=== PATIENT | male | born 1960 | race Caucasian/White ===

== ENCOUNTER 2021-06-26 18:56 | Inpatient (IN) | payer MEDICAID, SELFPAY ==
[~2021-06-26] VITALS: Ht 182.9 cm; Wt 69.4 kg
[2021-06-26 18:56] VITALS: BP_SYST 147
--- NOTE | 2021-06-26 18:56 | NUR ---
Placed in room 7 . Placed on mosaic floor layer, blood pressure machine and pulse oximeter. To gown for exam. Side rails up.
--- NOTE | 2021-06-26 18:57 | NUR ---
Pt bib ALS from [facility] for respiratory distress thats been getting progessivley worse for 4 days. Pt presenting diaphoretic and warm to touch. Pt GCS 9 at baseline. Pt is tachycardic 112 and tachypnic 37 vent dependent on a trach saturating at 100% and hypertensive 148/84. Pt presents with G-tube. Pt breathing is even and labored. Pt in [facility] attached to monitor. Rectal temp 101. Pt brought with a 20 gauge IV to right forearm.
--- NOTE | 2021-06-26 18:58 | NUR ---
1 Gram Rectal tylenol administered to pt per MD order.
--- NOTE | 2021-06-26 18:59 | NUR ---
Vent setting AC 22 FIO2 40% PEEP 6
--- NOTE | 2021-06-26 18:59 | NUR ---
Man catheter inserted with sterile technique per MD order. Pt tolerated well.
--- NOTE | 2021-06-26 19:00 | NUR ---
Urine collected and sent to lab.
[2021-06-26] MEDS ORDERED: ACETAMINOPHEN 650 MG SUPP.RECT RC ONE (19:15)
--- NOTE | 2021-06-26 19:25 | NUR ---
# 20 gauge angiocath placed to right hand. Use of asceptic technique. Opsite placed over site. Blood return noted. Blood for lab drawn from site. Flushed with 10 cc of normal saline. No evidence of infiltration noted. Patient tolerated well.
[2021-06-26] MEDS ORDERED: VANCOMYCIN HCL 1,000 MG in NS 250 ML IV ONE (19:30)
[2021-06-26] MEDS ORDERED: CEFEPIME 1 GM in D5W 50 ML IV ONE (19:30)
--- NOTE | 2021-06-26 19:30 | NUR ---
Annika meza in EDM - 06/26/21 at 1939 by [email or web address] PORTABLE XRAY DONE AT BEDSIDE.
--- NOTE | 2021-06-26 19:34 | NUR ---
X-ray at bedside.
--- NOTE | 2021-06-26 19:38 | NUR ---
Care endorsed to Shagufta MARTIN
[2021-06-26 19:55] LABS: BILIRUBIN,URINE NEGATIVE (NEGATIVE); BLOOD, URINE 2+ (NEGATIVE); COLOR,URINE YELLOW (YELLOW); GLUCOSE,URINE NEGATIVE (NEGATIVE); KETONES,URINE NEGATIVE (NEGATIVE); LEUKOCYTE ESTERASE ,URINE 1+ (NEGATIVE); NITRITE, URINE NEGATIVE (NEGATIVE); PH,URINE 7.5 (5.0-8.0); PROTEIN URINE 1+ (NEGATIVE)
[2021-06-26] MEDS ORDERED: CEFEPIME 1 GM/VIAL (MAXIPIME) ONE (19:59)
[2021-06-26] MEDS ORDERED: VANCOMYCIN HCL 1000 MG/VIAL IV ONE (19:59)
[2021-06-26 20:06] LABS: CALCIUM 8.2 mg/dL (8.4-11.0); CREATININE 1.54 mg/dL (0.55-1.30); MEAN CORPUSCULAR HEMOGLOBIN 29 pg (27-31); MEAN CORPUSCULAR HGB CONC 32 % (32-36); MEAN CORPUSCULAR VOLUME 92 fL (79.0-98.0); PLATELET COUNT (AUTO) 352 K/uL (130-430); POTASSIUM 3.9 mmol/L (3.5-5.1); RED BLOOD CELL COUNT(AUTO) 2.38 MIL/uL (4.2-6.2); RED CELL DISTRIBUTION WIDTH 22.9 % (9.0-15.0); WHITE BLOOD COUNT (AUTO) 16.3 K/uL (4.8-10.8)
[2021-06-26 20:09] LABS: CLARITY/URINE HAZY (CLEAR)
[2021-06-26 20:16] LABS: ALBUMIN 1.3 g/dL (3.4-4.8); TOTAL BILIRUBIN 0.5 mg/dL (0.0-1.0)
[2021-06-26 20:27] LABS: HEMATOCRIT 21.9 % (36-54)
--- NOTE | 2021-06-26 20:30 | NUR ---
BELONGINGS DONE AT BEDSIDE. PT ARRIVED WITH NO BELONINGS.
[2021-06-26 20:48] LABS: BACTERIA,URINE MODERATE /HPF (None Seen); RBC,URINE 20-50 /HPF (0-3); WBC,URINE 80-100 /HPF (0-3)
[2021-06-26 20:49] LABS: MUCUS,URINE None Seen /LPF (None Seen); YEAST,URINE Few /HPF (None Seen)
[2021-06-26 20:55] LABS: INR 1.2 (0.80-1.20); PROTHROMBIN TIME 12.2 SECS (9.5-12.5)
--- NOTE | 2021-06-26 22:00 | NUR ---
Medication reconciliation completed with information provided by [facility]. Any prior medication reconciliation on file was reviewed and corrected.
[2021-06-26] MEDS ORDERED: ALBUTEROL SULFATE 0.083% 2.5 MG/3 ML VIAL.NEB INH PRN (23:00)
[2021-06-26] MEDS ORDERED: D5/0.45 NS 1,000 ML IV SCH (23:00)
--- NOTE | 2021-06-26 23:00 | NUR ---
Patient will be admitted to [facility]. Admitted to ICU unit. PENDING ROOM ASSIGNMENT Belongings list completed. Complete and up to date summary report printed. SBAR report to be given at bedside with opportunity for questions.
[2021-06-26 23:33] LABS: BAND % (MANUAL) 4 % (0-6); BASOPHILS % (MANUAL) 0 % (0-2); EOSINOPHILS % (MANUAL) 23 % (0-7); LYMPHOCYTES % (MANUAL) 5 % (20-46); MONOCYTES % (MANUAL) 8 % (0-11)
[2021-06-27] VITALS (24 sets, daily range): BP systolic 133–195
--- NOTE | 2021-06-27 | NUR ---
Patient's code status is FULL CODE paperwork completed and placed in chart.
[2021-06-27] MEDS ORDERED: PIPERACILLIN/TAZOBACTAM 3.375 GM/VIAL (ZOSYN) IV ONE (00:36)
--- NOTE | 2021-06-27 01:00 | NUR ---
PATIENT TAKEN TO CT SCAN VIA GURNEY ACCOMPANIED BY RADIOLOGY, RN, AND RT.
--- NOTE | 2021-06-27 01:16 | NUR ---
PATIENT RETURNED FROM CT SCAN VIA GURNEY. IN STABLE CONDITION. RECONNECTED TO MONITOR AND VENT BY RT.
--- NOTE | 2021-06-27 02:00 | NUR ---
MCCALL EMPTIED. ABOUT 1600 ML OUT. DARK YELLOW FILLED WITH SEDIMENT AND BLOOD CLOTS NOTED. BELOW BLADDER AND DRAINING WELL.
--- NOTE | 2021-06-27 02:30 | NUR ---
RPatient resting quietly. No acute distress noted. Vital signs within normal range.
--- NOTE | 2021-06-27 03:25 | NUR ---
Patient resting quietly. No acute distress noted. Vital signs within normal range. IVF CONTINUED. RUNNING WITHOUT DIFFICULTIES.
--- NOTE | 2021-06-27 04:00 | NUR ---
BED ASSIGNMENT GIVEN TO GO TO ICU 3.
--- NOTE | 2021-06-27 04:10 | NUR ---
EMPTIED MCCALL. ABOUT 1500 ML EMPTIED OF BATOOL COLOR URINE. SEDIMENT NOTED. SMALL BLOOD CLOTS NOTED.
--- NOTE | 2021-06-27 04:20 | NUR ---
Transfer to ICU via ACLS protocol. Licensed nurse present. IV present no signs or symptoms of infiltration.
[2021-06-27] MEDS ORDERED: ZINC50TA69 GT (04:33)
[2021-06-27] MEDS ORDERED: HYDR-4039 GT (04:33)
[2021-06-27] MEDS ORDERED: NOR10 GT (04:33)
[2021-06-27] MEDS ORDERED: ASCO500T20 PO (04:33)
[2021-06-27] MEDS ORDERED: LACO200T2 GT (04:33)
[2021-06-27] MEDS ORDERED: LEVE500T9 GT (04:33)
[2021-06-27] MEDS ORDERED: LABE200T6 GT (04:33)
[2021-06-27] MEDS ORDERED: LACT1TAB14 PO (04:33)
[2021-06-27] MEDS ORDERED: ESOM20CA38 GT (04:33)
[2021-06-27] MEDS ORDERED: AMAN100C16 GT (04:33)
[2021-06-27] MEDS ORDERED: LISI40TA13 GT (04:33)
[2021-06-27] MEDS ORDERED: POLY17PO4 GT (04:33)
--- NOTE | 2021-06-27 04:56 | NUR ---
PAGED FOR CONSULT ORDERING PHYSICIAN: REASON FOR CONSULT: TRACH VENT DIALED: [phone] SPOKE TO: MEGAN
--- NOTE | 2021-06-27 06:54 | NUR ---
Nutrition Update Og Scale 13 noted. Pt admitted for Urosepsis Diet: Jevity 1.2 at 75ml/hr, FWF 250ml via GT BMI: 20.8 kg/m2 RD to follow per nutrition care standards.
[2021-06-27] MEDS ORDERED: PIPERACILLIN/TAZO 3.375/DEX-IS 50 ML IV SCH ×2 (07:00)
--- NOTE | 2021-06-27 07:00 | NUR ---
Recv report fr nikolai cope, patient came in at 5 am, for urosepsis from a detention, patient came with a fever, he is chronic trach to vent, gtube , kelly catheter, i will continue nursing care and interventions.
--- NOTE | 2021-06-27 09:43 | NUR ---
CONSULT ID CONSULTING MD: DR. ARAIZA PERSON NOTIFIED: YANA DIALED: [phone] ORDERED BY: DR. ALICIA
[2021-06-27] MEDS ORDERED: amLODIPine BESYLATE 10 MG TABLET PO ONE ×3 (13:15→14:00)
[2021-06-27] MEDS ORDERED: ENALAPRILAT DIHYDRATE 1.25 MG/ML VIAL IVP PRN (13:15)
[2021-06-27] MEDS ORDERED: amLODIPine BESYLATE 10 MG TABLET PO SCH ×2 (13:30→13:45)
[2021-06-27] MEDS ORDERED: hydrALAZINE HCL 25 MG TABLET PO SCH ×2 (14:00)
[2021-06-27] MEDS ORDERED: LABETALOL HCL 100 MG TABLET PO SCH ×2 (14:00)
[2021-06-27] MEDS ORDERED: lisinopriL 20 MG TABLET PO ONE (14:00)
[2021-06-27] MEDS: MEROPENEM 1 GM in NS 100 ML IV SCH ×2 (14:55→21:56)
[2021-06-27] MEDS: HEPARIN SODIUM,PORCINE 5,000 UNITS/ML VIAL SUBCUT SCH ×2 (14:58→21:49)
--- NOTE | 2021-06-27 15:20 | NUR ---
Wound Evaluation: Late note for 06/27/2021 at 1520 secondary to patient care. Wound Consult received from Dr. Salmon. Thank you, Dr. Salmon, for the consult. Patient received in a Vanessa Bed with an Atmos-Air 9000 mattress, awake, alert, confused. Patient is able to turn in bed independently. Og Score is a 13. 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 Brought to the ED from a subacute facility secondary to worsening respiratory distress and lethargy. Recent Labs: WBC 16.3, RBC 2.38, hemoglobin 7.0, hematocrit 21.9, BUN 73, creatinine 1.54, GFR 60, glucose 113, calcium 8.2, AST 59, alkaline phosphatase 389, albumin 1.3. Microbiology: MRSA screen results negative. Blood culture results x2 in progress. Urine culture results negative. Sputum culture results positive for Pseudomonas aeruginosa and Providencia stuartii (MDRO). Intrinsic factors that delay wound healing: Diabetes mellitus, Hypoalbuminemia. Extrinsic factors that delay wound healing: Decreased mobility. Skin assessment: 1. Coccygeal area: Unstageable pressure ulcer, present on admission. Wound bed has 75% yellow slough, 15% black slough, 10% red tissue. No odor, scant yellow drainage. 100% undermining present (0.4 cm at 12 oclock; 4.5 cm at 3 oclock; 0.3 cm at 6 oclock; 3.2 cm at 9 oclock). Wound measures 7.3 cm x 5.2 cm x 2.0 cm. Recommend: Cleanse wound with normal saline. Apply moisture barrier cream to unique-wound. Apply Venelex ointment to wound bed. Pack wound with 1/4 inch iodoform packing strip. Cover with Sacral foam dressing. Perform wound care daily, and as needed for dressing soiling or dislodgment. 2. Left buttock: Unstageable pressure ulcer, present on admission. Wound bed has 90% yellow slough, 10% red tissue. No odor, scant yellow drainage. Unique-wound intact. Wound measures 1.7 cm x 1.0 cm. Recommend: Cleanse wound with normal saline. Apply moisture barrier cream to unique-wound. Apply Venelex ointment to wound bed. Cover with foam dressing. Perform wound care daily, and as needed for dressing soiling or dislodgment. 3. Left Buttock, Inferior to Site 2: Unstageable pressure ulcer, present on admission. Wound bed has 95% yellow slough, 5% red tissue. No odor, scant yellow drainage. Unique-wound intact. Wound measures 2.0 cm x 1.8 cm. Recommend: Cleanse wound with normal saline. Apply moisture barrier cream to unique-wound. Apply Venelex ointment to wound bed. Cover with foam dressing. Perform wound care daily, and as needed for dressing soiling or dislodgment. 4. Right Ear: Unstageable pressure ulcer, present on admission. Wound bed has 95% yellow tissue, 5% red tissue. No odor, scant yellow drainage. Unique-wound intact. Wound measures 1.7 cm x 0.9 cm. 5. Right [place]: Unstageable pressure ulcer, present on admission. Wound bed has 90% yellow slough, 10% red tissue. No odor, scant yellow drainage. Unique-wound intact. Wound measures 3.2 cm x 2.5 cm. Recommend: Cleanse wounds with normal saline. Apply moisture barrier cream to unique-wounds. Apply Venelex ointment to wound beds. Cover with foam dressing. Perform wound care daily, and as needed for dressing soiling or dislodgment. Elevate ears off of bed by placing head on a towel folded in 3 (add additional towel if needed to ensure that bilateral ears float. Recommend reposition patient side to side only every 2 hours with pillow support. Elevate, off-load and float bilateral heels with one pillow lengthwise under each extremity at all times. Offload pressure areas with pillows for pressure re-distribution. Elevate ears off of bed by placing head on a towel folded in 3 (add additional towel if needed to ensure that bilateral ears float. Perform skin care and monitor skin integrity Q shift. Use moisture barrier cream on moisture susceptible areas QID and PRN for soiling. Place patient on a low air-loss mattress.
--- NOTE | 2021-06-27 20:00 | NUR ---
TRACH TO VENT. OPENS EYES SPON. DOES NOT TRACK. SUCTIONED VIA CORREA WITH MOD AMOUNT OF THICK CONNORS COLORED MUCUS OBTAINED. ORAL CARE GIVEN. GT FEEDING WITH JEVITY 1.2 AT 30CC/HR. RESIDUAL CHECK 0. MCCALL CATH PATENT DRAINING CLOUDY GIANCARLO URINE TO GRAVITY. SINUS TACH. MOVES RIGHT ARM, LEFT SIDE WEAKNESS NOTED.
[2021-06-27] MEDS ORDERED: LevETIRAcetam 500 MG/5 ML UDC ORAL LIQUID GT SCH ×2 (21:00)
[2021-06-27] MEDS: LevETIRAcetam 500 MG/5 ML UDC ORAL LIQUID GT SCH (21:51)
[2021-06-27] MEDS: LACOSAMIDE 100 MG TABLET GT SCH (21:52)
[2021-06-27] MEDS: hydrALAZINE HCL 25 MG TABLET GT SCH (21:53)
[2021-06-27] MEDS: LABETALOL HCL 100 MG TABLET GT SCH (21:55)
--- NOTE | 2021-06-27 22:00 | NUR ---
HS CARE GIVEN.
[2021-06-28] VITALS (17 sets, daily range): BP systolic 128–156
--- NOTE | 2021-06-28 | NUR ---
SUCTIONED WITH SAME RESULTS. ORAL CARE DONE. TURNED.
--- NOTE | 2021-06-28 04:00 | NUR ---
DOZES ON AND OFF. RESIDUAL 0, GT FEEDING INCREASED TO 45CC/HR. TEMP 101.3, COOLING MEASURES DONE, ICE PACKS APPLIED TO ARMPITS AND GROIN. ORAL CARE DONE. REPOSITIONED.
--- NOTE | 2021-06-28 05:00 | NUR ---
1 MODERATE SOFT BROWN STOOL DEFECATED. CLEANED. WAGNER-CARE DONE. MCCALL CARE, BACK CARE, SKIN CARE GIVEN. CHG BATH DONE. PARTIAL LINEN CHANGE RENDERED. DOES NOT ASSIST WITH TURNING. AC PROC WELL.
[2021-06-28] MEDS: hydrALAZINE HCL 25 MG TABLET GT SCH ×3 (05:54→22:00)
[2021-06-28] MEDS: LABETALOL HCL 100 MG TABLET GT SCH ×3 (05:55→22:00)
[2021-06-28] MEDS: MEROPENEM 1 GM in NS 100 ML IV SCH ×3 (05:56→22:00)
[2021-06-28] MEDS: HEPARIN SODIUM,PORCINE 5,000 UNITS/ML VIAL SUBCUT SCH ×3 (05:57→22:00)
--- NOTE | 2021-06-28 06:00 | NUR ---
TEMP BETTER. UO GOOD. REMAINS IN GUARDED CONDITION.
--- NOTE | 2021-06-28 07:34 | NUR ---
INITIAL RECEIVED REPORT FROM NIGHT RN FOR CONTINUING OF CARE.
[2021-06-28] MEDS: LevETIRAcetam 500 MG/5 ML UDC ORAL LIQUID GT SCH ×2 (09:00→21:00)
[2021-06-28] MEDS ORDERED: amLODIPine BESYLATE 10 MG TABLET PO SCH (09:00)
[2021-06-28] MEDS ORDERED: lisinopriL 20 MG TABLET PO SCH ×2 (09:00)
[2021-06-28] MEDS: amLODIPine BESYLATE 10 MG TABLET GT SCH (09:00)
[2021-06-28] MEDS: ASCORBIC ACID 500 MG TABLET PO SCH (09:01)
[2021-06-28] MEDS: LACOSAMIDE 100 MG TABLET GT SCH ×2 (09:01→21:00)
[2021-06-28] MEDS: lisinopriL 20 MG TABLET GT SCH (09:03)
[2021-06-28] MEDS: BALSAM PERU/CASTOR OIL 60 GM OINT...G. TP SCH (09:04)
[2021-06-28 09:51] LABS: BASOPHILS # (AUTO) 0.1 K/uL (0.0-0.2); BASOPHILS % (AUTO) 0.5 % (0.0-2.0); EOSINOPHILS # (AUTO) 0.1 K/uL (0.0-0.4); EOSINOPHILS % (AUTO) 0.4 % (0.0-4.0); LYMPHOCYTES # (AUTO) 1.4 K/uL (1.0-5.5); MEAN CORPUSCULAR HEMOGLOBIN 29 pg (27-31); MEAN CORPUSCULAR HGB CONC 31 % (32-36); MEAN CORPUSCULAR VOLUME 93 fL (79.0-98.0); MONOCYTES # (AUTO) 1.2 K/uL (0.0-1.0); MONOCYTES % (AUTO) 6.7 % (1.7-9.3); NEUTROPHILS # (AUTO) 15.1 K/uL (1.8-7.7); NEUTROPHILS % (AUTO) 84.4 % (40.0-70.0); PLATELET COUNT (AUTO) 326 K/uL (130-430); RED BLOOD CELL COUNT(AUTO) 2.28 MIL/uL (4.2-6.2); RED CELL DISTRIBUTION WIDTH 23.8 % (9.0-15.0); WHITE BLOOD COUNT (AUTO) 17.8 K/uL (4.8-10.8)
[2021-06-28 09:56] LABS: HEMATOCRIT 21.2 % (36-54); HEMOGLOBIN 6.6 g/dL (14.0-18.0)
[2021-06-28 10:02] LABS: CALCIUM 7.8 mg/dL (8.4-11.0); CREATININE 0.54 mg/dL (0.55-1.30); POTASSIUM 3.3 mmol/L (3.5-5.1)
[2021-06-28 10:10] LABS: ALBUMIN 1.3 g/dL (3.4-4.8); TOTAL BILIRUBIN 0.4 mg/dL (0.0-1.0)
--- NOTE | 2021-06-28 12:00 | NUR ---
RT NOTES Transferred pt to 118A with PETROPHYSICAL ENGINEER Ada. bagged pt with 100% O2 via resus. bag to trach tube. a/w remains secure/patent. Once in the room, placed pt back on vent with same settings. Alarms are set and audible at nurse's station. Rn Poppy and SN at bedside.
--- NOTE | 2021-06-28 12:00 | NUR ---
Patient transferred to unit in stable condition; no respiratory distress noted.
--- NOTE | 2021-06-28 12:03 | NUR ---
ENDORSEMENT TRANSFERRED PT TO [facility] UNIT & REPORT GIVEN TO [facility] MARIO KOLB FOR CONTINUING OF CARE
[2021-06-28] MEDS ORDERED: levETIRAcetam 500 MG TABLET ONE (21:20)
[2021-06-28] MEDS ORDERED: MEROPENEM 1 GM VIAL IV ONE (21:36)
--- NOTE | 2021-06-29 | NUR ---
Skin/wound care Complete TSB done / wound care sacral area tolerated well Addendum: 06/29/21 at 0030 by Kell Gutierrez RN repositioned, HOB semi fowlers aspiration precaution
[2021-06-29 00:30] VITALS: BP_SYST 123
--- NOTE | 2021-06-29 02:00 | NUR ---
Patient repositioned by staff every 2 hours with pillow support.
[2021-06-29] MEDS: MEROPENEM 1 GM in NS 100 ML IV SCH ×3 (05:14→22:06)
[2021-06-29] MEDS: ACETAMINOPHEN 650 MG/20.3 ML UDC GT PRN ×2 (05:15→18:05)
[2021-06-29] MEDS: HEPARIN SODIUM,PORCINE 5,000 UNITS/ML VIAL SUBCUT SCH ×3 (05:16→22:09)
[2021-06-29] MEDS: hydrALAZINE HCL 25 MG TABLET GT SCH ×3 (05:44→22:07)
[2021-06-29] MEDS: LABETALOL HCL 100 MG TABLET GT SCH ×3 (05:45→22:07)
--- NOTE | 2021-06-29 06:04 | NUR ---
Patient resting no sign of acute distress , kept semi fowlers tolerating feeding well repositioned.
[2021-06-29 06:50] LABS: BASOPHILS # (AUTO) 0.1 K/uL (0.0-0.2); BASOPHILS % (AUTO) 0.7 % (0.0-2.0); EOSINOPHILS # (AUTO) 0.5 K/uL (0.0-0.4); EOSINOPHILS % (AUTO) 3.7 % (0.0-4.0); HEMATOCRIT 26.5 % (36-54); HEMOGLOBIN 8.4 g/dL (14.0-18.0); LYMPHOCYTES # (AUTO) 1.2 K/uL (1.0-5.5); LYMPHOCYTES % (AUTO) 8.5 % (20.5-51.5); MEAN CORPUSCULAR HEMOGLOBIN 29 pg (27-31); MEAN CORPUSCULAR HGB CONC 32 % (32-36); MEAN CORPUSCULAR VOLUME 92 fL (79.0-98.0); MONOCYTES # (AUTO) 1.1 K/uL (0.0-1.0); MONOCYTES % (AUTO) 8.1 % (1.7-9.3); NEUTROPHILS # (AUTO) 10.8 K/uL (1.8-7.7); PLATELET COUNT (AUTO) 301 K/uL (130-430); RED BLOOD CELL COUNT(AUTO) 2.87 MIL/uL (4.2-6.2); RED CELL DISTRIBUTION WIDTH 22.3 % (9.0-15.0); WHITE BLOOD COUNT (AUTO) 13.7 K/uL (4.8-10.8)
[2021-06-29 07:29] LABS: ALBUMIN 1.3 g/dL (3.4-4.8); CREATININE 0.58 mg/dL (0.55-1.30); POTASSIUM 3.4 mmol/L (3.5-5.1); TOTAL BILIRUBIN 0.4 mg/dL (0.0-1.0)
--- NOTE | 2021-06-29 07:30 | NUR ---
AM ROUNDS: RECEIVED REPORT FROM NIGHT NURSE TANGELA.OPENS BOTH EYES,NON VERBAL.ON TRACH VENT,PATIENT ON MECHANICAL VENTILATOR WITH FIO2=30%.WITH GOOD SATURATION.RIGHT FOREARM AND RIGHT HAND IV INTACT.TUBE FEEDS ON GOING. MCCALL IN PLACED DRAINING TO LARGE AMOUNT OF YELLOW URINE. LEFT SIDE FLACCID.ON CONTACT ISOLATION PRECAUTION RENDERED. SAFETY MEASURES RENDERED.
[2021-06-29 08:30] VITALS: BP_SYST 136
[2021-06-29] MEDS: lisinopriL 20 MG TABLET GT SCH (09:59)
[2021-06-29] MEDS: LevETIRAcetam 500 MG/5 ML UDC ORAL LIQUID GT SCH ×2 (10:00→20:27)
[2021-06-29] MEDS: ASCORBIC ACID 500 MG TABLET PO SCH (10:00)
[2021-06-29] MEDS: amLODIPine BESYLATE 10 MG TABLET GT SCH (10:00)
[2021-06-29] MEDS: BALSAM PERU/CASTOR OIL 60 GM OINT...G. TP SCH (10:01)
[2021-06-29] MEDS: LACOSAMIDE 100 MG TABLET GT SCH ×2 (10:09→20:27)
[2021-06-29 12:18] VITALS: BP_SYST 143
[2021-06-29 13:40] VITALS: BP_SYST 148
--- NOTE | 2021-06-29 15:52 | NUR ---
ID MD DR GLEZ WAS CALLED, RE: MDRO OF THE SPUTUM. SPOKE TO SULEMAN
[2021-06-29 16:14] VITALS: BP_SYST 148
--- NOTE | 2021-06-29 17:00 | NUR ---
Dietitian Recommendation * Recommend continuing Jevity 1.2 at 75ml w/ Kenrick BID via GT Provide: 2340 kcal/day, 105 gm of protein/day, 1453 ml free water/day Meet: 95% of upper end os estimated caloric intake, 100% of lower end of estimated protein intake. * Physician to clarify Free Water Flush d/t renal failure LP, RD Please refer to Nutrition Assessment for details. Addendum: 06/29/21 at 1701 by Robert Mario DI Amended: Links added.
--- NOTE | 2021-06-29 18:27 | NUR ---
EVENING ROUNDS: MAINTAINED ON TRACH VENT WITH SAME FIO2=30%.O2 SATURATION=98=99%. TUBE FEEDS ON GOING. MCCALL IN SITU DRAINING LARGE AMOUNT OF GIANCARLO URINE. NOT IN ANY RESPIRATORY DISTRESS. CONTINUE TO MONITOR.
--- NOTE | 2021-06-29 18:42 | NUR ---
LATE ENTRY: CALLED DR ALLISON AND LEFT MESSAGE C/O EXCHANGE SANTI RE: MDRO IN SPUTUM. Addendum: 06/29/21 at 1857 by Talita Barillas RN ADDED NOTES: DR [place] ARAIZA AWARE OF SPUTUM MDRO LB,PT HAS IV MERREM ALREADY,NO NEW ORDERS MADE.
[2021-06-29 19:44] VITALS: BP_SYST 137
--- NOTE | 2021-06-29 21:00 | NUR ---
Patient awake , complete TSB done including wound care tolerates well . repositioned
--- NOTE | 2021-06-29 23:15 | NUR ---
Patient awake watching TV no sign of acute distress., repositioned.
[2021-06-30] VITALS (7 sets, daily range): BP systolic 130–152
--- NOTE | 2021-06-30 05:00 | NUR ---
Morning/perineal care given , repositioned.
[2021-06-30] MEDS: hydrALAZINE HCL 25 MG TABLET GT SCH ×3 (05:06→21:54)
[2021-06-30] MEDS: LABETALOL HCL 100 MG TABLET GT SCH ×3 (05:06→21:54)
[2021-06-30] MEDS: ACETAMINOPHEN 650 MG/20.3 ML UDC GT PRN (05:08)
[2021-06-30] MEDS: HEPARIN SODIUM,PORCINE 5,000 UNITS/ML VIAL SUBCUT SCH ×3 (05:12→21:56)
[2021-06-30] MEDS: MEROPENEM 1 GM in NS 100 ML IV SCH ×3 (05:14→21:55)
--- NOTE | 2021-06-30 08:10 | NUR ---
Patient resting quietly in bed with no respiratory distress at this time. Patient stable.
[2021-06-30] MEDS: ASCORBIC ACID 500 MG TABLET PO SCH (09:18)
[2021-06-30] MEDS: LevETIRAcetam 500 MG/5 ML UDC ORAL LIQUID GT SCH ×2 (09:18→21:55)
[2021-06-30] MEDS: LACOSAMIDE 100 MG TABLET GT SCH ×2 (09:18→21:54)
[2021-06-30] MEDS: amLODIPine BESYLATE 10 MG TABLET GT SCH (09:19)
[2021-06-30] MEDS: BALSAM PERU/CASTOR OIL 60 GM OINT...G. TP SCH (09:20)
[2021-06-30] MEDS: lisinopriL 20 MG TABLET GT SCH (09:20)
--- NOTE | 2021-06-30 09:20 | NUR ---
Scheduled po medications given via G-tube. Patient stable at this time.
[2021-06-30 12:51] LABS: CREATININE 0.47 mg/dL (0.55-1.30); POTASSIUM 4.1 mmol/L (3.5-5.1)
[2021-06-30 12:57] LABS: ALBUMIN 0.7 g/dL (3.4-4.8); TOTAL BILIRUBIN 0.4 mg/dL (0.0-1.0)
[2021-06-30 13:00] LABS: CALCIUM 6.3 mg/dL (8.4-11.0)
--- NOTE | 2021-06-30 15:30 | NUR ---
Scheduled IV abx and subq medications given per order. Po medications given via G-tube. Patient stable at this time.
--- NOTE | 2021-06-30 18:15 | NUR ---
Cleansed sacral wound with normal saline, venelex applied to wound bed, and wound covered with foam dressing. Patient repositioned to his right side. No respiratory distress noted at this time. Patient stable throughout shift.
--- NOTE | 2021-06-30 22:00 | NUR ---
ROUNDING NOTES Patient resting in bed - no s/s pain or distress noted. Respirations even and unlabored - head of bed elevated mech vent secured. IV site patent - no s/s redness, infection, or infiltration. Bed locked and in lowest position. Call light within reach - bed alarm on.
[2021-07-01 00:56] VITALS: BP_SYST 139
[2021-07-01] MEDS: MEROPENEM 1 GM in NS 100 ML IV SCH ×3 (05:52→21:04)
[2021-07-01] MEDS: LABETALOL HCL 100 MG TABLET GT SCH ×3 (05:53→21:04)
[2021-07-01] MEDS: hydrALAZINE HCL 25 MG TABLET GT SCH ×3 (05:54→21:05)
[2021-07-01] MEDS: HEPARIN SODIUM,PORCINE 5,000 UNITS/ML VIAL SUBCUT SCH ×3 (05:55→21:07)
--- NOTE | 2021-07-01 08:07 | NUR ---
OPENING NOTES: PATIENT RESTING IN BED. BREATHING EVEN AND NON LABORED. MECHANICAL VENT OPERATING WELL. IV AND G TUBE INFUSING WELL. MCCALL CATHETER SECURED AND DRAINING BY GRAVITY. BED LOCKED, ALARM ON AND IN LOWEST POSITION. FALL SAFETY AND ASPIRATION MEASURES REINFORCED. WILL CONTINUE MONITOR PATIENT.
[2021-07-01 09:04] VITALS: BP_SYST 142
[2021-07-01] MEDS: ASCORBIC ACID 500 MG TABLET PO SCH (09:14)
[2021-07-01] MEDS: lisinopriL 20 MG TABLET GT SCH (09:15)
[2021-07-01] MEDS: LACOSAMIDE 100 MG TABLET GT SCH ×2 (09:15→21:05)
[2021-07-01] MEDS: amLODIPine BESYLATE 10 MG TABLET GT SCH (09:16)
[2021-07-01] MEDS: LevETIRAcetam 500 MG/5 ML UDC ORAL LIQUID GT SCH ×2 (09:16→21:05)
[2021-07-01] MEDS: BALSAM PERU/CASTOR OIL 60 GM OINT...G. TP SCH (09:17)
[2021-07-01 12:03] VITALS: BP_SYST 141
--- NOTE | 2021-07-01 14:00 | NUR ---
RN NOTES: INCONTINENT CARE DONE. G TUBE FLUSH DONE. NO S/S OF ACUTE DISTRESS NOTED. BED LOCKED, ALARM ON AND IN LOWEST POSITION.
[2021-07-01 16:17] VITALS: BP_SYST 132
--- NOTE | 2021-07-01 16:19 | NUR ---
Nutrition F/U RD reviewed pt's current EMR record including diet Hx, physician notes, nursing notes, pertinent labs/meds/procedures, care trends, and care activity. Admission Dx: Urosepsis PMH: UTI, CVA, Renal failure, HTN, Chronic trach & vent dependent per MD notes Pt also found w/ altered mental status, pneumonia per MD notes SARS-CoV-2 Ag (Rapid) Negative 06/26 Current Diet Order/Nutrition Support: Jevity 1.2 at 75 ml/hr, Kenrick BID, Free Water Flush: 250 via GT x1 day Subjective Info: RD rounded to pt's bedside. Primary RN and sister were present as well. RN stated that pt has been tolerating TF well, was increased from 65 ml/hr to 70 ml/hr this morning -- RD stated that pt's goal rate is 75 ml/hr; RN stated she will increase later. TF was seen off d/t RN providing care. RN also reported smear-like BM after recently changing pt's linens. RD inquired about Kenrick administration, and RN stated she has not seen the supplement yet, but will provide when available. Per EMR review, TF Intakes: 70 ml 07/01; GRV: 2 ml 06/30; TF Intakes: 840 ml 07/01; active bowel sounds; last BM x1 06/28; Og scale: 12 -- per Bedspread Cutter note 06/27: 1. Coccygeal area: Unstageable pressure ulcer, present on admission. 2. Left buttock: Unstageable pressure ulcer, present on admission. 3. Left Buttock, Inferior to Site 2: Unstageable pressure ulcer, present on admission. 4. Right Ear: Unstageable pressure ulcer, present on admission. 5. Right [place]: Unstageable pressure ulcer, present on admission. Pertinent Medications: VIT C, keppra, heparin Pertinent Labs: 06/29: WBC 13.7 H; 06/30: Na 155 H, K 4.1 WNL, CRE 0.47 L Height (Feet) 6 feet Height (Inches) 0.00 inches Weight (Pounds) 153 pounds -- stable since 06/30 Weight (Calculated Kilograms) 69.373229 kilograms Patient Weight 69.4 kg UBW: per sister 07/01: not sure , however, she feels that pt's arms appear thinner Body Mass Index 20.75 kg/m2 %IBW 86 [place]/Adjusted Body Weight 178#/81kg Recent Weight Change No - unable to verify Weight Status Appropriate Estimated Energy Expenditure (kcals/day) 5399-8009 (30-35 kcal/kg CBW d/t urosepsis, wound healing) Estimated Protein Required (g/day) 105-140 (1.5-2 gm//kg CBW d/t urosepsis, wound healing) Estimated Fluid Required (l/day) Per MD (Renal failure) Problem/Etiology/Signs/Symptoms Increased nutritional needs related to metabolic demands as evidenced by estimated nutritional requirements for sepsis and wound healing Expected Outcomes/Goals Monitor EN support w/ goal of pt meeting at least 80% of estimated nutritional needs, lab trending WNL, normal GI function, skin integrity w/ wt maintenance. Dietitian Recommendations * Recommend continuing Jevity 1.2 at 75 ml w/ Kenrick BID via GT Provide: 2340 kcal/day, 105 gm of protein/day, 1453 ml free water/day Meet: 95% of upper end of estimated caloric needs and 100% of lower end of estimated protein needs * Physician to clarify Free Water Flush d/t renal failure Follow Up High Risk: F/U in 2-3 days
--- NOTE | 2021-07-01 16:26 | NUR ---
Dietitian Recommendations * Recommend continuing Jevity 1.2 at 75 ml w/ Kenrick BID via GT Provide: 2340 kcal/day, 105 gm of protein/day, 1453 ml free water/day Meet: 95% of upper end of estimated caloric needs and 100% of lower end of estimated protein needs * Physician to clarify Free Water Flush d/t renal failure LP, RD Please refer to Nutrition F/U for details.
--- NOTE | 2021-07-01 18:49 | NUR ---
CLOSING NOTES: PATIENT RESTING IN BED. NO S/S OF ACUTE DISTRESS NOTED. MECH VENT INFUSING WELL. IV AND G TUBE INFUSING WELL. BED LOCKED, ALARM ON AND IN LOWEST POSITION. FALL AND SAFETY MEASURES RENDERED. WILL CONTINUE MONITOR UNTIL ENDORSE TO [employer] INFRASTRUCTURE CONSULTANT RN.
--- NOTE | 2021-07-01 19:05 | NUR ---
RECEIVED BEDSIDE REPORT FROM RN. PT IN BED AWAKE. PT UNABLE TO MAKE NEEDS KNOWN. TRACH INTACT DOES NOT NEED TO BE SUCTIONED. TUBE FEEDING RUNNING. BED RAILS UPX2. CALL LIGHT WITHIN REACH. BED ALARM ON. HOB ELEVATED. WILL CONTINUE TO MONITOR.
[2021-07-01 21:02] VITALS: BP_SYST 147
--- NOTE | 2021-07-01 22:05 | NUR ---
RESIDUAL VOLUME 0 ON G-TUBE. PT TOLERATING FEEDING WELL. WILL CONTINUE TO MONITOR
[2021-07-02] VITALS: BP_SYST 122
--- NOTE | 2021-07-02 04:15 | NUR ---
PT IN BED ASLEEP. PT DOESN'T APPEAR TO BE IN PAIN. NO SUCTIONING NEEDED. CALL LIGHT WITHIN REACH. WILL CONTINUE TO MONITOR.
[2021-07-02] MEDS: MEROPENEM 1 GM in NS 100 ML IV SCH ×3 (05:58→21:56)
[2021-07-02] MEDS: hydrALAZINE HCL 25 MG TABLET GT SCH ×3 (06:00→21:51)
[2021-07-02] MEDS: LABETALOL HCL 100 MG TABLET GT SCH ×3 (06:00→21:50)
[2021-07-02] MEDS: HEPARIN SODIUM,PORCINE 5,000 UNITS/ML VIAL SUBCUT SCH ×3 (06:01→21:52)
[2021-07-02 06:05] VITALS: BP_SYST 154
[2021-07-02 07:01] LABS: BASOPHILS # (AUTO) 0.1 K/uL (0.0-0.2); BASOPHILS % (AUTO) 0.4 % (0.0-2.0); EOSINOPHILS # (AUTO) 1.1 K/uL (0.0-0.4); EOSINOPHILS % (AUTO) 6.9 % (0.0-4.0); HEMOGLOBIN 9.6 g/dL (14.0-18.0); LYMPHOCYTES # (AUTO) 1.1 K/uL (1.0-5.5); LYMPHOCYTES % (AUTO) 7.2 % (20.5-51.5); MEAN CORPUSCULAR HEMOGLOBIN 30 pg (27-31); MEAN CORPUSCULAR HGB CONC 32 % (32-36); MEAN CORPUSCULAR VOLUME 93 fL (79.0-98.0); MONOCYTES # (AUTO) 0.9 K/uL (0.0-1.0); MONOCYTES % (AUTO) 5.5 % (1.7-9.3); NEUTROPHILS # (AUTO) 12.5 K/uL (1.8-7.7); PLATELET COUNT (AUTO) 288 K/uL (130-430); RED BLOOD CELL COUNT(AUTO) 3.22 MIL/uL (4.2-6.2); RED CELL DISTRIBUTION WIDTH 21.5 % (9.0-15.0); WHITE BLOOD COUNT (AUTO) 15.6 K/uL (4.8-10.8)
--- NOTE | 2021-07-02 07:15 | NUR ---
endorsed care to day rn
[2021-07-02 08:41] LABS: CALCIUM 7.5 mg/dL (8.4-11.0); CREATININE 0.59 mg/dL (0.55-1.30); POTASSIUM 3.6 mmol/L (3.5-5.1)
[2021-07-02] MEDS: LACOSAMIDE 100 MG TABLET GT SCH ×2 (09:11→21:56)
[2021-07-02] MEDS: ASCORBIC ACID 500 MG TABLET PO SCH (09:11)
[2021-07-02] MEDS: lisinopriL 20 MG TABLET GT SCH (09:12)
[2021-07-02] MEDS: LevETIRAcetam 500 MG/5 ML UDC ORAL LIQUID GT SCH ×2 (09:13→21:56)
[2021-07-02] MEDS: amLODIPine BESYLATE 10 MG TABLET GT SCH (09:13)
[2021-07-02] MEDS: BALSAM PERU/CASTOR OIL 60 GM OINT...G. TP SCH (09:17)
[2021-07-02] MEDS: D5W 1,000 ML IV SCH (09:18)
[2021-07-02 12:54] VITALS: BP_SYST 144
[2021-07-02 13:00] LABS: ERYTHROCYTE SEDIMENTATION RATE 99 MM/HR (0-15)
[2021-07-02 16:26] VITALS: BP_SYST 138
--- NOTE | 2021-07-02 18:59 | NUR ---
CLOSING NOTES: PATIENT RESTING IN BED. NO S/S OF ACUTE DISTRESS NOTED. [facility]. IV AND G TUBE INFUSING WELL. MCCALL CATHETER DRAINING BY GRAVITY. BED LOCKED, ALARM ON AND IN LOWEST POSITION. FALL AND SAFETY MEASURES RENDERED. WILL CONTINUE MONITOR UNTIL ENDORSE TO SENIOR MOBILE DEVELOPER RN.
[2021-07-02 20:00] VITALS: BP_SYST 150
--- NOTE | 2021-07-02 20:00 | NUR ---
INITIAL NOTES: PATIENT RESTING IN BED. BREATHING EVEN AND NON LABORED. ON MECHANICAL VENT TOLERATING SETTING WELL ,IV FLUID AND G TUBE INFUSING WELL. MCCALL CATHETER SECURED AND DRAINING DARK YELLOW COLOR URINE BY GRAVITY. BED LOCKED, ALARM ON AND IN LOWEST POSITION. FALL SAFETY AND ASPIRATION MEASURES REINFORCED. WILL CONTINUE MONITOR PATIENT.
[2021-07-03 01:33] VITALS: BP_SYST 137
[2021-07-03] MEDS: D5W 1,000 ML IV SCH (05:31)
[2021-07-03] MEDS: ACETAMINOPHEN 650 MG/20.3 ML UDC GT PRN (05:32)
[2021-07-03] MEDS: MEROPENEM 1 GM in NS 100 ML IV SCH ×3 (05:35→20:19)
[2021-07-03] MEDS: HEPARIN SODIUM,PORCINE 5,000 UNITS/ML VIAL SUBCUT SCH ×3 (05:36→20:19)
[2021-07-03] MEDS: LABETALOL HCL 100 MG TABLET GT SCH ×3 (05:37→20:15)
[2021-07-03] MEDS: hydrALAZINE HCL 25 MG TABLET GT SCH ×3 (05:38→20:16)
[2021-07-03 07:12] LABS: BASOPHILS # (AUTO) 0.1 K/uL (0.0-0.2); BASOPHILS % (AUTO) 0.4 % (0.0-2.0); EOSINOPHILS # (AUTO) 0.6 K/uL (0.0-0.4); EOSINOPHILS % (AUTO) 3.5 % (0.0-4.0); HEMATOCRIT 30.9 % (36-54); HEMOGLOBIN 9.6 g/dL (14.0-18.0); LYMPHOCYTES # (AUTO) 1.2 K/uL (1.0-5.5); LYMPHOCYTES % (AUTO) 6.8 % (20.5-51.5); MEAN CORPUSCULAR HEMOGLOBIN 29 pg (27-31); MEAN CORPUSCULAR HGB CONC 31 % (32-36); MEAN CORPUSCULAR VOLUME 94 fL (79.0-98.0); MONOCYTES # (AUTO) 0.9 K/uL (0.0-1.0); MONOCYTES % (AUTO) 5.4 % (1.7-9.3); NEUTROPHILS # (AUTO) 14.5 K/uL (1.8-7.7); NEUTROPHILS % (AUTO) 83.9 % (40.0-70.0); PLATELET COUNT (AUTO) 288 K/uL (130-430); RED CELL DISTRIBUTION WIDTH 21.1 % (9.0-15.0); WHITE BLOOD COUNT (AUTO) 17.3 K/uL (4.8-10.8)
[2021-07-03 07:35] LABS: ALBUMIN 1.6 g/dL (3.4-4.8); CREATININE 0.53 mg/dL (0.55-1.30); PHOSPHORUS 2.5 mg/dL (2.7-4.5); POTASSIUM 3.5 mmol/L (3.5-5.1); TOTAL BILIRUBIN 0.3 mg/dL (0.0-1.0)
--- NOTE | 2021-07-03 07:35 | NUR ---
CLOSING NOTES: PT IS AWAKE , NOT IN ANY ACUTE DISTRESS; REPORT GIVEN TO RN AT BEDSIDE ; ALL NEEDS ATTENDED ; WILL CONTINUE TO MONITOR PT .
[2021-07-03 08:42] VITALS: BP_SYST 127
--- NOTE | 2021-07-03 08:42 | NUR ---
INITIAL ROUNDS Received pt eyes open, non-verbal on vent via trach, settings verified. No s/s resp distress, no s/s pain or discomfort. Pt on contact isolation precautions for MDRO sputum. IVF infusing well to RFA at ordered rate with no s/s infiltration to site. Jevity 1.2 infusing well at ordered rate via g-tube, no residual noted. Pt repositioned with pillow support and heels off-loaded for skin care and comfort. Man draining to gravity with yellow urine. Side rails up x3, bed alarm on for safety.
[2021-07-03] MEDS: ASCORBIC ACID 500 MG TABLET PO SCH (09:42)
[2021-07-03] MEDS: lisinopriL 20 MG TABLET GT SCH (09:43)
[2021-07-03] MEDS: amLODIPine BESYLATE 10 MG TABLET GT SCH (09:43)
[2021-07-03] MEDS: LACOSAMIDE 100 MG TABLET GT SCH ×2 (09:43→20:15)
[2021-07-03] MEDS: LevETIRAcetam 500 MG/5 ML UDC ORAL LIQUID GT SCH ×2 (09:44→20:15)
[2021-07-03 11:31] VITALS: BP_SYST 134
[2021-07-03 12:21] LABS: C-REACTIVE PROTEIN QUANT 1.9 mg/dL (0-0.5)
[2021-07-03 12:23] LABS: ERYTHROCYTE SEDIMENTATION RATE 92 MM/HR (0-15)
[2021-07-03 15:37] VITALS: BP_SYST 139
[2021-07-03] MEDS: BALSAM PERU/CASTOR OIL 60 GM OINT...G. TP SCH (17:01)
--- NOTE | 2021-07-03 17:01 | NUR ---
WOUND CARE Coccyx area-old dressing and packing removed. Area cleansed with normal saline, Venelex ointment placed onto wound bed, Iodoform packing placed in wound, covered with Sacral dressing. Wound bed was 15% pink tissue, 75% yellow tissue and 10% blackish brown tissue, minimal drainage noted, no odor. wound bed measured 7.2 cm x 5.2 cm x 2 cm. *Right buttock-Coccyx area-old dressing removed. Area cleansed with normal saline, Venelex ointment placed onto wound bed, covered with foam dressing. Wound bed was 90% pink tissue, 10% red tissue, no drainage, no odor. Wound measures 1.6 cm x 1.0 cm. *Left buttock-Coccxy area-old dressing removed. Area cleansed with normal saline, Venelex ointment placed onto wound bed, covered with foam dressing. Wound bed was 100% pink tissue, no drainage, no odor, periwound dry. Wound measured 1.5 cm 1.0 cm. *Left heel wound- area-old dressing removed. Area cleansed with normal saline, Venelex ointment placed onto wound bed, covered with foam dressing. Wound bed 100% black, dry tissue, no drainage, no odor. Wound measures 4 cm x3 cm. Pt repositioned with pillow support and heels off-loaded for skin care. Aspiration, isolation and safety precautions remain in place.
--- NOTE | 2021-07-03 18:13 | NUR ---
CLOSING NOTE No s/s resp distress, no s/s pain or discomfort. Pt remains on contact isolation precautions. IVF infusing well to RFA at ordered rate with no s/s infiltration to site. Jevity 1.2 infusing well at ordered rate via g-tube, no residual noted. Pt repositioned with pillow support and heels off-loaded for skin care and comfort. Man draining to gravity with yellow urine. Side rails up x3, bed alarm on for safety.
[2021-07-03 20:00] VITALS: BP_SYST 130
[2021-07-04 00:10] VITALS: BP_SYST 103
[2021-07-04] MEDS: D5W 1,000 ML IV SCH ×2 (00:46→21:26)
--- NOTE | 2021-07-04 02:50 | NUR ---
Patient in bed. Turned repositioned q2. HOB elevated. Gtube patent and intact. No residual noted. Will continue to monitor.
[2021-07-04] MEDS: MEROPENEM 1 GM in NS 100 ML IV SCH ×3 (05:35→20:02)
[2021-07-04] MEDS: LABETALOL HCL 100 MG TABLET GT SCH ×3 (05:39→20:04)
[2021-07-04] MEDS: hydrALAZINE HCL 25 MG TABLET GT SCH ×3 (05:42→20:03)
[2021-07-04] MEDS: HEPARIN SODIUM,PORCINE 5,000 UNITS/ML VIAL SUBCUT SCH ×3 (05:48→20:07)
--- NOTE | 2021-07-04 08:30 | NUR ---
0830: Received pt laying in bed at 0700. Pt does not respond verbally but is laying there awake and alert. IV noted to R arm- infusing D5W @50ml/hr. Pt does not appear to be in any pain. No sensation, dry flaky skin noted, skin warm to touch. Edema noted to L arm and leg morso than R. Lungs clear. No SOB noted. On vent- settings reviewed. Occasional produtive cough noted with suctioning.Tele insitu. BS x4. Void- via kelly- output satisfactory, clear/yellow drainage. No N+V noted. Dressings to coccyx, L heel and R ear- to be changed by data analyst report writer later today. Pt does not mobilize- air bed in place- turn Q2H. VSS. Meds pused via G-tube. Tube feed running Jevity 1.2 @ 75ml/hr. HOB 30 degrees. Will continue to monitor. 0900: Tube feeding stopped as pt now NPO for ABD U/S this afternoon.
[2021-07-04] MEDS: LACOSAMIDE 100 MG TABLET GT SCH ×2 (08:34→20:03)
[2021-07-04] MEDS: LevETIRAcetam 500 MG/5 ML UDC ORAL LIQUID GT SCH ×2 (08:34→20:08)
[2021-07-04] MEDS: amLODIPine BESYLATE 10 MG TABLET GT SCH (08:35)
[2021-07-04] MEDS: ASCORBIC ACID 500 MG TABLET PO SCH (08:35)
[2021-07-04] MEDS: lisinopriL 20 MG TABLET GT SCH (08:35)
[2021-07-04 09:30] VITALS: BP_SYST 125
[2021-07-04 11:30] VITALS: BP_SYST 120
[2021-07-04] MEDS: BALSAM PERU/CASTOR OIL 60 GM OINT...G. TP SCH (11:30)
--- NOTE | 2021-07-04 11:33 | NUR ---
WOUND CARE Coccyx area-old dressing and packing removed. Area cleansed with normal saline, Venelex ointment placed onto wound bed, Iodoform packing placed in wound (1 piece), covered with Sacral dressing. Wound bed was 15% pink tissue, 75% yellow tissue and 10% blackish brown tissue, minimal drainage noted, no odor. wound bed measured 7cm x 4cm x 1.5cm. Right buttock/Coccyx area-old dressing removed. Area cleansed with normal saline, Venelex ointment placed onto wound bed, covered with foam dressing. Wound bed was 90% pink tissue, 10% red tissue, no drainage, no odor. Wound measures 1.5cm x 2.0 cm. Left buttock/Coccxy area-old dressing removed. Area cleansed with normal saline, Venelex ointment placed onto wound bed, covered with foam dressing. Wound bed was 100% pink tissue, no drainage, no odor, periwound dry. Wound measured 1.0 cm 1.0 cm. Left heel wound-old dressing removed. Area cleansed with normal saline, Venelex ointment placed onto wound bed, covered with foam dressing. Wound bed 100% black, dry tissue, no drainage, no odor. Wound measures 4 cm x3 cm. Pt repositioned with pillow support and heels off-loaded for skin care. Lotion applied to body. Aspiration, isolation and safety precautions remain in place.
--- NOTE | 2021-07-04 13:59 | NUR ---
Nutrition F/U RD reviewed pt's current EMR record including diet Hx, physician notes, nursing notes, pertinent labs/meds/procedures, care trends, and care activity. Admission Dx: Urosepsis PMH: UTI, CVA, Renal failure, HTN, Chronic trach & vent dependent per MD notes Pt also found w/ altered mental status, pneumonia per MD notes SARS-CoV-2 Ag (Rapid) Negative 06/26 Current Diet Order/Nutrition Support: Jevity 1.2 at 75 ml/hr, Kenrick BID, Free Water Flush: 250 via GT x4 days Subjective Info: RD rounded to pts bedside, EN was off during visit. Per RN report, no EN issues, no GRV this morning. EN was held this morning d/t plan for US. RN will resume EN once procedure is done. RD reminded RN about administering Kenrick for wound healing. RD also discussed possible tapering off of Dextrose as pt's BG's are trending up. RN will ask MD about Dextrose and frequency of water flushed. Per EMR review, no EN issues overnight, no residual noted per RN. Pt was seen by treasury specialist on 06/27 and noted multiple unstageable pressure injuries. Current EN order remains adequate and appropriate. Pertinent Medications: VIT C, keppra, heparin, Dextrose at 50ml/hr (204 calories) Pertinent Labs: 07/03: WBC 17.3 H, Na 149 H, K 3.5 WNL, BG 155H Height: 6 feet 0.00 inches Weight: 153 pounds/ 69.524835 kilograms -- stable since 06/30 Body Mass Index: 20.75 kg/m2 [place]/Adjusted Body Weight: 178#/81kg Estimated Energy Expenditure (kcals/day) 5912-7511 (30-35 kcal/kg CBW d/t urosepsis, wound healing) Estimated Protein Required (g/day) 105-140 (1.5-2 gm//kg CBW d/t urosepsis, wound healing) Estimated Fluid Required (l/day) Per MD (Renal failure) Problem/Etiology/Signs/Symptoms Increased nutritional needs related to metabolic demands as evidenced by estimated nutritional requirements for sepsis and wound healing (*ongoing) Altered nutrition related labs r/t D5% infusion AEB elevated BG, on Dextrose, no Hx of DM. (*new) Expected Outcomes/Goals Monitor EN support w/ goal of pt meeting at least 80% of estimated nutritional needs, lab trending WNL, normal GI function, skin integrity w/ wt maintenance. Dietitian Recommendations * Recommend: discontinue Dextrose IV. (BG trending up) * Recommend continuing Jevity 1.2 at 75 ml w/ Kenrick BID via GT Provide: 2340 kcal/day, 105 gm of protein/day, 1453 ml free water/day Meet: 95% of upper end of estimated caloric needs and 100% of lower end of estimated protein needs * Physician to clarify Free Water Flush d/t renal failure Follow Up High Risk: F/U in 2-3 days
--- NOTE | 2021-07-04 14:00 | NUR ---
ABD ultrasound complete. Will await results.
--- NOTE | 2021-07-04 14:04 | NUR ---
Dietitian Recommendations * Recommend: discontinue Dextrose IV. (BG trending up) * Recommend continuing Jevity 1.2 at 75 ml w/ Kenrick BID via GT Provide: 2340 kcal/day, 105 gm of protein/day, 1453 ml free water/day Meet: 95% of upper end of estimated caloric needs and 100% of lower end of estimated protein needs * Physician to clarify Free Water Flush d/t renal failure Please see Nutrition F/U note for details. [facility], RD
[2021-07-04 15:29] VITALS: BP_SYST 142
--- NOTE | 2021-07-04 17:00 | NUR ---
Tube feed restarted per orders @ 75ml/hr. Pt resting in bed. No voiced concerns. Pt does not appear to be uncomfortable. Turn Q2H t/o shift. Will continue to monitor.
[2021-07-05] VITALS (8 sets, daily range): BP systolic 114–130
--- NOTE | 2021-07-05 04:13 | NUR ---
Patient turned q2. Gtube patent and intact. No residual noted. No change in patient's current assessment.
[2021-07-05] MEDS: hydrALAZINE HCL 25 MG TABLET GT SCH ×3 (05:10→22:01)
[2021-07-05] MEDS: LABETALOL HCL 100 MG TABLET GT SCH ×3 (05:10→22:00)
[2021-07-05] MEDS: MEROPENEM 1 GM in NS 100 ML IV SCH ×3 (05:12→22:01)
[2021-07-05] MEDS: HEPARIN SODIUM,PORCINE 5,000 UNITS/ML VIAL SUBCUT SCH ×3 (05:19→22:04)
--- NOTE | 2021-07-05 08:30 | NUR ---
0830: Received pt laying in bed at 0700. Pt does not respond verbally but is laying there awake and alert. IV noted to R arm S/L. Pt does not appear to be in any pain. No sensation, dry flaky skin noted, skin warm to touch. Edema noted to L arm and leg morso than R. Lungs clear. No SOB noted. On vent- settings reviewed. Occasional produtive cough noted with suctioning.Tele insitu. BS x4. Void- via kelly- output satisfactory, clear/yellow drainage. No N+V noted. Dressings to coccyx, L heel and R ear- changed per note. Pt does not mobilize- air bed in place- turn Q2H. VSS. Meds pushed via G-tube. Tube feed running Jevity 1.2 @ 75ml/hr. HOB 30 degrees. Will continue to monitor.
[2021-07-05] MEDS: LACOSAMIDE 100 MG TABLET GT SCH ×2 (08:45→22:00)
[2021-07-05] MEDS: LevETIRAcetam 500 MG/5 ML UDC ORAL LIQUID GT SCH ×2 (08:46→22:55)
[2021-07-05] MEDS: ASCORBIC ACID 500 MG TABLET PO SCH (08:46)
[2021-07-05] MEDS: lisinopriL 20 MG TABLET GT SCH (08:47)
[2021-07-05] MEDS: amLODIPine BESYLATE 10 MG TABLET GT SCH (08:47)
[2021-07-05] MEDS: BALSAM PERU/CASTOR OIL 60 GM OINT...G. TP SCH (11:00)
[2021-07-05 13:03] LABS: BASOPHILS % (AUTO) 0.3 % (0.0-2.0); EOSINOPHILS % (AUTO) 8.2 % (0.0-4.0); LYMPHOCYTES # (AUTO) 0.8 K/uL (1.0-5.5); LYMPHOCYTES % (AUTO) 6.3 % (20.5-51.5); MEAN CORPUSCULAR HEMOGLOBIN 29 pg (27-31); MEAN CORPUSCULAR HGB CONC 31 % (32-36); MEAN CORPUSCULAR VOLUME 94 fL (79.0-98.0); MONOCYTES # (AUTO) 0.6 K/uL (0.0-1.0); MONOCYTES % (AUTO) 5.1 % (1.7-9.3); NEUTROPHILS # (AUTO) 9.8 K/uL (1.8-7.7); NEUTROPHILS % (AUTO) 80.1 % (40.0-70.0); PLATELET COUNT (AUTO) 244 K/uL (130-430); RED BLOOD CELL COUNT(AUTO) 3.41 MIL/uL (4.2-6.2); RED CELL DISTRIBUTION WIDTH 20.5 % (9.0-15.0); WHITE BLOOD COUNT (AUTO) 12.2 K/uL (4.8-10.8)
[2021-07-05 13:17] LABS: CALCIUM 8.4 mg/dL (8.4-11.0); CREATININE 0.61 mg/dL (0.55-1.30); POTASSIUM 4.3 mmol/L (3.5-5.1)
[2021-07-05 13:23] LABS: ALBUMIN 1.6 g/dL (3.4-4.8); TOTAL BILIRUBIN 0.3 mg/dL (0.0-1.0)
--- NOTE | 2021-07-05 17:45 | NUR ---
END OF SHIFT: Pt resting in bed, does not appear to be in pain. Airway patent. Man drained- output satisfactory. Pt turned Q2-3 throughout shift. Will continue to monitor.
[2021-07-06] VITALS: BP_SYST 138; BP_SYST 92
[2021-07-06] MEDS: hydrALAZINE HCL 25 MG TABLET GT SCH ×3 (06:00→21:51)
[2021-07-06] MEDS: MEROPENEM 1 GM in NS 100 ML IV SCH ×3 (06:00→21:50)
[2021-07-06] MEDS: LABETALOL HCL 100 MG TABLET GT SCH ×3 (06:00→21:51)
--- NOTE | 2021-07-06 07:30 | NUR ---
OPENING NOTES: PATIENT RESTING IN BED. BREATHING EVEN AND NON LABORED. MECHANICAL VENT OPERATING WELL. G TUBE INFUSING WELL. NO IV. MCCALL CATHETER SECURED AND DRAINING BY GRAVITY. BED LOCKED, ALARM ON AND IN LOWEST POSITION. FALL SAFETY AND ASPIRATION MEASURES REINFORCED. WILL CONTINUE MONITOR PATIENT.
--- NOTE | 2021-07-06 08:14 | NUR ---
IV REINSERTION DONE: IV REINSERTION AT RIGHT HAND GAUGE 22. PATIENT TOLERATED WELL. IV INFUSING WELL.
[2021-07-06 08:16] VITALS: BP_SYST 132
[2021-07-06] MEDS: ASCORBIC ACID 500 MG TABLET PO SCH (09:26)
[2021-07-06] MEDS: amLODIPine BESYLATE 10 MG TABLET GT SCH (09:27)
[2021-07-06] MEDS: lisinopriL 20 MG TABLET GT SCH (09:27)
[2021-07-06] MEDS: LACOSAMIDE 100 MG TABLET GT SCH ×2 (09:27→21:51)
[2021-07-06] MEDS: LevETIRAcetam 500 MG/5 ML UDC ORAL LIQUID GT SCH ×2 (09:28→21:50)
[2021-07-06] MEDS: BALSAM PERU/CASTOR OIL 60 GM OINT...G. TP SCH (09:28)
[2021-07-06 12:32] VITALS: BP_SYST 95
[2021-07-06] MEDS: HEPARIN SODIUM,PORCINE 5,000 UNITS/ML VIAL SUBCUT SCH ×2 (14:38→21:52)
--- NOTE | 2021-07-06 15:00 | NUR ---
Dressing change done: Dressing change done. Reposition the patient. No s/s of acute distress noted. Bed locked, alarm on and in lowest position. Will continue monitor patient.
[2021-07-06 16:17] VITALS: BP_SYST 131
--- NOTE | 2021-07-06 18:50 | NUR ---
CLOSING NOTES: PATIENT RESTING IN BED. BREATHING EVEN AND NON LABORED. MECHANICAL VENT OPERATING WELL. G TUBE INFUSING WELL. IV INFUSING WELL. MCCALL CATHETER SECURED AND DRAINING BY GRAVITY. BED LOCKED, ALARM ON AND IN LOWEST POSITION. FALL SAFETY AND ASPIRATION MEASURES REINFORCED.
--- NOTE | 2021-07-06 19:20 | NUR ---
INITIAL NOTE AT INITIAL ASSESSMENT, PATIENT IS RESTING IN BED, STABLE, NO SIGNS OF RESPIRATORY DISTRESS. PATIENT SHOWS NO PAIN PER FLACC SCALE USED. PLAN OF CARE FOR THE EVENING IS COMMUNICATED WITH THE PATIENT. PATIENT IS UNABLE TO DEMONSTRATE CORRECT USAGE OF CALL LIGHT AT THIS TIME DUE TO COGNITIVE IMPAIRMENT; FREQUENT ROUNDING WILL BE COMPLETED THROUGHOUT THE NIGHT TO MEET ALL PATIENT NEEDS. BED IS LOCKED, ALARMED, AND AT THE LOWEST LEVEL. FALL SAFETY EDUCATION PROVIDED. FALL, SAFETY, ISOLATION, ASPIRATION, AND RESPIRATORY PRECAUTIONS WILL BE TAKEN THROUGHOUT THE SHIFT.
[2021-07-06 19:35] VITALS: BP_SYST 146
--- NOTE | 2021-07-06 21:30 | NUR ---
MED PASS NOTE PRN MEDICATION FOR MILD PAIN GIVEN AT THIS TIME PER PATIENT'S FLACC SCALE SHOWING MILD PAIN. SCHEDULED MEDICATIONS GIVEN AT THIS TIME, PATIENT TOLERATED WELL. BED IS LOCKED, ALARMED, AND AT THE LOWEST LEVEL.
[2021-07-06] MEDS: ACETAMINOPHEN 650 MG/20.3 ML UDC GT PRN (22:00)
--- NOTE | 2021-07-06 22:30 | NUR ---
HYGIENE CARE NOTE HYGIENE CARE IS PROVIDED AT THIS TIME, FRESH LINENS PROVIDED, AND PATIENT IS REPOSITIONED FOR COMFORT. PATIENT TOLERATED WELL. CALL LIGHT PLACED WITHIN REACH. BED IS LOCKED, ALARMED, AND AT THE LOWEST LEVEL.
[2021-07-07 00:34] VITALS: BP_SYST 100
[2021-07-07] MEDS: MEROPENEM 1 GM in NS 100 ML IV SCH ×3 (05:45→21:36)
[2021-07-07] MEDS: HEPARIN SODIUM,PORCINE 5,000 UNITS/ML VIAL SUBCUT SCH ×3 (05:56→21:40)
[2021-07-07] MEDS: hydrALAZINE HCL 25 MG TABLET GT SCH ×3 (06:06→21:36)
[2021-07-07] MEDS: LABETALOL HCL 100 MG TABLET GT SCH ×3 (06:07→21:37)
--- NOTE | 2021-07-07 06:45 | NUR ---
CLOSING NOTE NO CHANGES DURING THE NIGHT, PATIENT SLEPT WELL THROUGHOUT THE SHIFT, NO SHORTNESS OF BREATH NOTED. AT THIS TIME, PATIENT IS RESTING IN BED, STABLE, NO SIGNS OF ACUTE RESPIRATORY DISTRESS. CALL LIGHT IS WITHIN REACH. BED IS LOCKED, ALARMED, AND AT THE LOWEST LEVEL. FALL, SAFETY, ISOLATION, ASPIRATION, AND RESPIRATORY PRECAUTIONS HAVE BEEN TAKEN THROUGHOUT THE SHIFT. WILL CONTINUE TO MONITOR UNTIL SHIFT REPORT IS GIVEN AT BEDSIDE TO AM NURSE.
[2021-07-07] MEDS: ASCORBIC ACID 500 MG TABLET PO SCH (09:00)
[2021-07-07] MEDS: LACOSAMIDE 100 MG TABLET GT SCH ×2 (09:00→21:36)
[2021-07-07] MEDS: BALSAM PERU/CASTOR OIL 60 GM OINT...G. TP SCH (09:00)
[2021-07-07] MEDS: LevETIRAcetam 500 MG/5 ML UDC ORAL LIQUID GT SCH ×2 (09:00→21:35)
[2021-07-07] MEDS: lisinopriL 20 MG TABLET GT SCH (09:00)
[2021-07-07] MEDS: amLODIPine BESYLATE 10 MG TABLET GT SCH (09:00)
[2021-07-07 11:31] VITALS: BP_SYST 107
[2021-07-07 15:46] VITALS: BP_SYST 105
[2021-07-07 16:00] VITALS: BP_SYST 101
--- NOTE | 2021-07-07 16:54 | NUR ---
Nutrition F/U RD reviewed pt's current EMR record including diet Hx, physician notes, nursing notes, pertinent labs/meds/procedures, care trends, and care activity. Admission Dx: Urosepsis PMH: UTI, CVA, Renal failure, HTN, Chronic trach & vent dependent per MD notes Pt also found w/ altered mental status, pneumonia per MD notes SARS-CoV-2 Ag (Rapid) Negative 06/26 Current Diet Order/Nutrition Support: Jevity 1.2 at 75 ml/hr, Kenrick BID, Free Water Flush: 250 via GT x4 days Subjective Info: RD bedside visit deferred d/t high RD load. RD called pt's primary RN at [phone] -- RN reported that pt has been tolerating TF well and has only had 10 ml of GRV. RN also reported that pt had x1 loose BM earlier today. No plans/procedures today, just to continue current medical treatment. Per EMR review, TF Rate: 75 ml/hr 07/07; TF Intakes: 900 ml 07/07; GRV: 10 ml 07/07; abd is soft w/ active bowel sounds; last BM x3 07/07; 3+ non-pitting edema to L arm and L leg; Og scale: 10 -- per [employer] note 06/27: 1. Coccygeal area: Unstageable pressure ulcer, present on admission. 2. Left buttock: Unstageable pressure ulcer, present on admission. 3. Left Buttock, Inferior to Site 2: Unstageable pressure ulcer, present on admission. 4. Right Ear: Unstageable pressure ulcer, present on admission. 5. Right [place]: Unstageable pressure ulcer, present on admission. Current TF prescription continues adequate/appropriate. Pertinent Medications: VIT C, keppra, heparin Pertinent Labs: WBC 12.2 H, Na 146 H, K 4.3 WNL, BG 135 H, BUN 2 L, CRE 2.7 H, AST 117 H, ALT 191 H, ALP 256 H Height: 6' Weight: 153#/69 kg -- stable since 06/30 Body Mass Index: 20.75 kg/m2 (normal) [place]/Adjusted Body Weight: 178#/81kg Estimated Energy Expenditure (kcals/day) 1009-8003 (30-35 kcal/kg CBW d/t urosepsis, wound healing) Estimated Protein Required (g/day) 105-140 (1.5-2 gm//kg CBW d/t urosepsis, wound healing) Estimated Fluid Required (l/day) Per MD (Renal failure) Problem/Etiology/Signs/Symptoms Increased nutritional needs related to metabolic demands as evidenced by estimated nutritional requirements for sepsis and wound healing (*ongoing) Altered nutrition related labs r/t D5% infusion AEB elevated BG, on IV dextrose, no Hx of DM. (*improved, no longer on dextrose) Expected Outcomes/Goals Monitor EN support w/ goal of pt meeting at least 80% of estimated nutritional needs, lab trending WNL, normal GI function, skin integrity w/ wt maintenance. Dietitian Recommendations * Recommend continuing Jevity 1.2 at 75 ml w/ Kenrick BID via GT Provide: 2340 kcal/day, 105 gm of protein/day, 1453 ml free water/day Meet: 95% of upper end of estimated caloric needs and 100% of lower end of estimated protein needs * Physician to clarify Free Water Flush d/t renal failure Follow Up High Risk: F/U in 2-3 days Addendum: 07/07/21 at [address] Per RN, pt is receiving 250 ml free water flush Q6h -- provides 1000 ml/day.
[2021-07-07 19:00] VITALS: BP_SYST 100
--- NOTE | 2021-07-07 19:15 | NUR ---
change of shift.pt.presents isolation status;contact;mrsa;sputum.pt.presents trach/ventilator;settings;tv;400,fio-2%=30%, a/c;22,peep:5.pt.tolerating vent settings;02-sat%=100%.pt.presents iv access:location:rt.hand;iv fluids:ns-flush infusing. pt.presents g-tube intact;g-tube feed;jevity:1.2 infusing.pt.presents kelly cath intact urine content present.general status stable.respiratory status stable.call light/telephone w/in access of the pt.
[2021-07-07 20:00] VITALS: BP_SYST 100
--- NOTE | 2021-07-07 20:00 | NUR ---
pt.assessed.v/s assessed values note b/p value low status,temp elevated:100.1.trach intact i have attended to the oral/trach care/suction.02-sat%=100%. iv access location;rt.hand intact iv fluids infusing.g-tube intact g-tube feed infusing.kelly cath intact urine content present. per flacc pain mgx pt.absent facial grimaces/body posturing.pt.assessed for cleanliness.pt.repositioned.call light/telephone placed w/in access of the pt.
--- NOTE | 2021-07-07 21:00 | NUR ---
2100pmedications administered.medications administered via g-tube.g-tube intact/flushed.g-tube feed residuals assessed note 10ml.per flacc pain mgx pt.absent facial grimaces/body posturing.pt.assessed for cleanliness.pt.repositioned.call light/telephone placed w/in access of the pt.
[2021-07-07] MEDS: ACETAMINOPHEN 650 MG/20.3 ML UDC GT PRN (21:40)
--- NOTE | 2021-07-07 22:00 | NUR ---
pt.assessed.v/s assessed note temp presents in value.trach intact.i have attended to the oral/trach care/ suction.o2-sat%=98%.g-tube intact g-tube feed infusing.kelly cath intact urine content present.iv access intact iv fluids:ns-flush infusing.pt.assessed for cleanliness.pt.repositioned.call light/telephone placed w/in access of the pt.
[2021-07-08] VITALS: BP_SYST 103
--- NOTE | 2021-07-08 | NUR ---
pt.assessed.v/s assessed note temp,b/p status.trach intact.i have attended to the oral/trach care/suction.iv access intact iv fluids:ns-flush infusing.g-tube intact g-tube feed infusing.kelly cath intact urine content present.per flacc pain mgx pt.absent facial grimaces/body posturing.pt.assessed for cleanliness.pt.repositioned.call light/telephone placed w/in access of the pt. o2-sat%=98%.
--- NOTE | 2021-07-08 02:00 | NUR ---
pt.assessed.trach intact.i have attended to the oral/trach care/suction;-sat%=98%.iv access intact iv fluids:ns-flush infusing. g-tube intact g-tube feed infusing.kelly cath intact urine content present.per flacc pain mgx pt.absent facial grimaces /body posturing.pt.assessed for cleanliness.pt.repositioned.call light/telephone placed w/in access of the pt.
--- NOTE | 2021-07-08 04:00 | NUR ---
pt.assessed.trach intact.i have attended to the oral/trach care/suction.iv access intact iv fluids infusing.g-tube intact g-tube feed infusing.kelly cath intact urine content present.per flacc pain mgx pt.absent facial grimaces/body posturing. pt.assessed for cleanliness.pt.repositioned.call light/telephone placed w/in access of the pt.02-sat%=98%
[2021-07-08 05:00] VITALS: BP_SYST 129
[2021-07-08] MEDS: hydrALAZINE HCL 25 MG TABLET GT SCH ×3 (05:31→20:49)
[2021-07-08] MEDS: LABETALOL HCL 100 MG TABLET GT SCH ×3 (05:32→20:50)
[2021-07-08] MEDS: MEROPENEM 1 GM in NS 100 ML IV SCH ×3 (05:32→21:38)
[2021-07-08] MEDS: HEPARIN SODIUM,PORCINE 5,000 UNITS/ML VIAL SUBCUT SCH ×3 (05:35→21:43)
--- NOTE | 2021-07-08 06:05 | NUR ---
pt.assessed.trach intact.i have attended to the oral/trach care/suction.medications:0600a dose administered via g-tube.g-tube feed residuals assessed note 10ml/250ml flushed administered.v/s assessed p/t administration;apresoline/trandate.b/p wnl.i have attended to the wound care/dsg changes.i have attended to the g-tube dsg change.per flacc pain mgx pt.absent facial grimaces/body posturing.pt.assessed for cleanliness.pt.repositioned.iv access intact iv fluids ns-flush infusing.kelly cath intact urine content present.o2-sat%=98%.call light/telephone placed w/in access of the pt. Addendum: 07/09/21 at 1840 by Dino Estrada RN locate new wound;location;mid-back.new wound?wound care attended to/wound noted.camera not available.
[2021-07-08] MEDS: BALSAM PERU/CASTOR OIL 60 GM OINT...G. TP SCH (09:00)
[2021-07-08] MEDS: LevETIRAcetam 500 MG/5 ML UDC ORAL LIQUID GT SCH ×2 (10:27→20:51)
[2021-07-08] MEDS: LACOSAMIDE 100 MG TABLET GT SCH ×2 (10:29→20:50)
[2021-07-08] MEDS: lisinopriL 20 MG TABLET GT SCH (10:29)
[2021-07-08] MEDS: ASCORBIC ACID 500 MG TABLET PO SCH (10:29)
[2021-07-08] MEDS: amLODIPine BESYLATE 10 MG TABLET GT SCH (10:30)
[2021-07-08] MEDS ORDERED: MERO1VIA23 IV (12:33)
[2021-07-08 12:58] VITALS: BP_SYST 99
--- NOTE | 2021-07-08 15:49 | NUR ---
CM: faxed clinicals /transfer back package to [facility] fax # [phone], tel # [phone]. She will call back to nursing unit if there is isolation bed today. DC package placed in [facility] unit. May call [facility] # [phone]. The pt is CALEO, trach /Vent fio2 30%. -- MARIO colón. Addendum: 07/08/21 at 163 by Dc Hayward RN Jim Wisdom assigned pt to room 115A. Van colón. Addendum: 07/08/21 at 1631 by Dc Hayward RN Disposition [facility].
[2021-07-08] MEDS: ACETAMINOPHEN 650 MG/20.3 ML UDC GT PRN ×2 (16:55→20:51)
[2021-07-08 18:04] VITALS: BP_SYST 98
[2021-07-08 18:05] VITALS: BP_SYST 98
--- NOTE | 2021-07-08 19:30 | NUR ---
CHANGE OF SHIFT; endorsed by day shift. pt. on vent via trach. on MDRO isolation for sputum. padded rails for seizure precautions. pt. unable to use call ligth since unresponsive.
[2021-07-08 20:30] VITALS: BP_SYST 96
--- NOTE | 2021-07-08 20:30 | NUR ---
NOTES: pt. unresponsive. on the vent via trach @ 30 FIO2 TV 400 AC rate22 Peep 5. IV TKO via rt. hand, G tube feed @ 75 cc/hr. site clean. VS checked. skin warm with Temp 100.8, cooling measures and ice pack. HOB elevated. cont. pulse ox reading of O2 sat 91-92%. suctioned with very scant secretions via trach. on athletic monitor and shows sinus tach. kelly cath to sd. on MRO of sputum isolation. on seizure precautions.
--- NOTE | 2021-07-08 22:00 | NUR ---
NOTES: repositioned. oral suction done. rt. ear dressing intact and left heel, sacral wound with foam dressing intact.
--- NOTE | 2021-07-09 00:45 | NUR ---
NOTES: pt. drooling, suctioned rally and via trach. repositioned and turn to sides. left arm swollen, elevated with pillow and both heels offload . remains on sinus tach. continuous cooling measures. IV tko. G tube feed @ 75 cc/hr, site clean. kelly cath intact.
[2021-07-09 01:14] VITALS: BP_SYST 93
--- NOTE | 2021-07-09 03:00 | NUR ---
NOTES: O2 sat @ 94-95%. suctioned orally and via trach. g tube feed continuous. cooling measures on.
--- NOTE | 2021-07-09 04:50 | NUR ---
NOTES: complete am/care/maria del carmen care done, with small loose BM. repositioned, turn to sides. both arms swollen belgica. left arm. both heels nataliia load with pillows. condition observed. continue to monitor.
[2021-07-09] MEDS: LABETALOL HCL 100 MG TABLET GT SCH ×3 (06:00→20:48)
[2021-07-09] MEDS: hydrALAZINE HCL 25 MG TABLET GT SCH ×3 (06:00→20:48)
[2021-07-09] MEDS: MEROPENEM 1 GM in NS 100 ML IV SCH ×3 (06:20→21:47)
[2021-07-09] MEDS: HEPARIN SODIUM,PORCINE 5,000 UNITS/ML VIAL SUBCUT SCH ×3 (06:28→21:53)
--- NOTE | 2021-07-09 06:30 | NUR ---
CLOSING NOTES; condition observed. G tube cntinuous. trach to vent @ same settings 30% FIO2/ TV 400 Peep 5 AC rate 22. oral care done. on MDRO isolation of sputum. will endorse to incoming shift. seizure precautions.
--- NOTE | 2021-07-09 08:00 | NUR ---
MORNING ROUNDS: HAND OVER RECEIVED FROM NIGHT NURSE SUZETTE.PATIENT ON CHRONIC VENT TRACH,WITH FIO2=30%,WITH GOOD SATURATION. RIGHT HAND IV TO TKO,DRESSING CLEAN AND DRY. TUBE FEEDS RUNNING AT 75CC/H ,INTACT. MCCALL DRAINING TO GIANCARLO URINE IN MODERATION. BED LOCKED AT LOWEST POSITION. BED ALARM ON. ON CONTACT ISOLATION FOR MDRO IN SPUTUM.PRECAUTION RENDERED.
[2021-07-09 08:20] VITALS: BP_SYST 100
[2021-07-09] MEDS: amLODIPine BESYLATE 10 MG TABLET GT SCH (09:00)
[2021-07-09] MEDS: lisinopriL 20 MG TABLET GT SCH (09:00)
--- NOTE | 2021-07-09 09:30 | NUR ---
CHECKED TEMPERATURE: AFEBRILE. WITH TEMPERATURE=98.9 FAHRENHEIT. STABLE.
[2021-07-09] MEDS: LevETIRAcetam 500 MG/5 ML UDC ORAL LIQUID GT SCH ×2 (09:46→20:47)
[2021-07-09] MEDS: ASCORBIC ACID 500 MG TABLET PO SCH (09:47)
[2021-07-09] MEDS: LACOSAMIDE 100 MG TABLET GT SCH ×2 (09:47→20:47)
[2021-07-09] MEDS: BALSAM PERU/CASTOR OIL 60 GM OINT...G. TP SCH (09:48)
[2021-07-09 12:30] VITALS: BP_SYST 92
--- NOTE | 2021-07-09 12:32 | NUR ---
VERIFIED DC ORDERS: DR Mikie CARPIO DOING ROUNDS. WITH ORDERS TRANSFER BACK TO [facility]ACILITY WHEN BED IS AVAILABLE.
--- NOTE | 2021-07-09 15:40 | NUR ---
CM: Booked [facility] with [place], on Will Call, BLS with [facility]. Pt is on trach to vent Fio2 30%, MDRO sputum. [facility] # [phone].-- per MARIO Rodríguez request. Addendum: 07/09/21 at 1658 by Dc Hayward RN Per Anne, calling [facility] but was told there is no [facility] for tonight. >> Booked BLS with [facility] for [facility] between 10-1030 pm . Will/dispatcher aware that the pt is on chronic trach to vent Fio2 30%, MDRO sputum. -- MARIO Rodríguez aware.
[2021-07-09 16:00] VITALS: BP_SYST 92; BP_SYST 96
--- NOTE | 2021-07-09 19:30 | NUR ---
CHANGE OF SHIFT; endorsed by day shift, will be discharge tonight to [facility], chicken picker time bet. 10-1030 pm.
--- NOTE | 2021-07-09 19:30 | NUR ---
EVENING ROUNDS: ENDORSED TO NIGHT NURSE SUZETTE.PATIENT STILL ON VENTILATOR,FIO2=30%.WITH GOOD SATURATION.IV TO TKO AT RIGHT HAND. TUBE FEEDS ON GOING. MCCALL IN SITU. CONDITION GUARDED.TRANSFER BACK TO [facility] ORDERED.SPOKE WITH PT'S SISTER DEBRA AND AWARE OF THE TRANSFER TONIGHT.
--- NOTE | 2021-07-09 20:00 | NUR ---
NOTES: pt. remain unresponsive, on the vent with trch, settings @ 30% FIO2/TV 400/ AC rate 22 Peep 5. on g tube feed ,Jevity 1.2 @ 75 cc/hr. site dressing changed. IV to rt. hand. both arms swelling belgica. left arm. sacral wound dressing changed and took picture including rt. ear , back and left heel.
--- NOTE | 2021-07-09 21:00 | NUR ---
NOTES: due medications given. had bm. all wound dressing changed. on licensed acupuncturist and shows sinus tach. kelly intact.
--- NOTE | 2021-07-09 22:04 | NUR ---
NOTES: called [facility] and report given to nurse Pichardo, going to room 115 A.
[2021-07-09 22:17] VITALS: BP_SYST 93
--- NOTE | 2021-07-09 22:17 | NUR ---
NOTES: transport here, report given. ( [facility] ambulance).
--- NOTE | 2021-07-09 22:40 | NUR ---
NOTES: pt. discharged via vent with trach, condition guarded. to [facility] via [facility] ambulance. informed nurse ej to cll family when pt. arrives in their facility. Addendum: 07/09/21 at 2258 by Sabrina Tay RN transfer checklist completed.
== END 2021-07-09 22:40 | DRG 720 ==
LOC: SED 18:56 → SIC 06-27 00:13 → STU 06-28 12:01
PROVIDERS: ADMIT Internal Medicine Hospice and Palliative Medicine; ATTEND Internal Medicine Hospice and Palliative Medicine
PROC: 5A1955Z Respiratory Ventilation, Greater than 96 Consecutive Hours (ICD-10-PCS; principal; 2021-06-27)
PROC: 30233N1 Transfusion of Nonautologous Red Blood Cells into Peripheral Vein, Percutaneous Approach (ICD-10-PCS; 2021-06-28)
DX: A41.9 Sepsis, unspecified organism (principal); J96.21 Acute and chronic respiratory failure with hypoxia; J15.1 Pneumonia due to Pseudomonas; L89.159 Pressure ulcer of sacral region, unspecified stage; L89.629 Pressure ulcer of left heel, unspecified stage; E87.0 Hyperosmolality and hypernatremia; E83.51 Hypocalcemia; N17.9 Acute kidney failure, unspecified; R65.20 Severe sepsis without septic shock; N39.0 Urinary tract infection, site not specified; Z20.822 Contact with and (suspected) exposure to COVID-19; D64.9 Anemia, unspecified; R74.01 Elevation of levels of liver transaminase levels; I12.9 Hypertensive chronic kidney disease with stage 1 through stage 4 chronic kidney disease, or unspecified chronic kidney disease; N18.9 Chronic kidney disease, unspecified; Z86.73 Personal history of transient ischemic attack (TIA), and cerebral infarction without residual deficits; Z99.11 Dependence on respirator [ventilator] status; Z93.0 Tracheostomy status; Z79.01 Long term (current) use of anticoagulants; Z79.899 Other long term (current) drug therapy
CPT/HCPCS: 36415; 71045; 76376; 76700-TC; 80048; 80053; 81000; 82962; 83605; 83735; 84100; 84484; 85007; 85025; 85027; 85610-TC; 85651-TC; 85730-TC; 86140; 86886; 86900; 86901; 86920; 87040-TC; 87070-TC; 87081; 87086; 87205-TC; 93005; 94002; 94003; 94640; 94760; 96365; 96366; 96368; 99285; G0378; J0692; J1644; J2185; J2543; J3370; P9021; Q9967